=== PATIENT | male | born 1970 | race Caucasian/White ===

== ENCOUNTER 2024-02-24 09:10 | Emergency (ER) | payer BC ==
[2024-02-24] MEDS ORDERED: LORazepam 2 MG/ML VIAL ONE (09:43)
[2024-02-24] MEDS ORDERED: LACOSAMIDE 50 MG TABLET ONE (09:43)
[2024-02-24] MEDS ORDERED: NA CHLORIDE 0.9% 1,000 ML ONE (09:44)
[2024-02-24 09:49] LABS: Absolute Basophils 0.1 K/uL (0-0.5); Absolute Lymphocytes (CBC) 0.7 K/uL (0.7-4.9); Absolute Monocytes 0.7 K/uL (0.1-1.3); Absolute Neutrophil 10.9 K/uL (1.8-8.0); Basophils % 0.6 % (0-1.3); Eosinophils % 0.1 % (0-4.4); Hematocrit 47.9 % (39.6-49.0); Hemoglobin 15.7 g/dL (13.6-17.9); Lymphocytes % 5.5 % (15.3-44.8); MCH 29.4 pg (27.0-35.0); MCHC 32.9 g/dL (32.0-36.0); MCV 89.4 fL (80-100); MPV 8.8 fL (7.6-11.3); Monocytes % 5.9 % (3.3-12.3); Neutrophils % 87.9 % (41.7-73.7); Nucleated Red Blood Cells % 0.1 % (0-0); Platelets 202 thou/uL (152-406); RBC Red Blood Cell Count 5.36 M/uL (4.33-5.43); Red Cell Distribution Width 13.4 % (12.1-15.2)
[2024-02-24 10:11] LABS: Albumin 4.2 g/dL (3.4-5.0); Albumin/Globulin Ratio 1.1 (1.1-1.8); Bilirubin Total 0.4 mg/dL (0.2-1.0); Protein, Total 8.2 g/dL (6.4-8.2)
[2024-02-24] MEDS ORDERED: LEVETIRACETAM 500 MG/5 ML VIAL IV ONE (10:25)
[2024-02-24] MEDS ORDERED: NA CHLORIDE 0.9% 100 ML ONE (10:25)
--- NOTE | 2024-02-24 10:47 | RAD REPORT ---
EXAM: CT brain without contrast HISTORY: Seizure COMPARISON: None TECHNIQUE: Multiple contiguous axial images were obtained and a CT of the brain without contrast.. Sagittal and coronal reconstruction performed. Automated exposure control, adjustment of the mA and/or kV according to patient size, and/or iterative reconstruction. Unless otherwise specified, incidental f indings do not require dedicated imaging follow-up FINDINGS: An intracranial bleed is not seen Ventricles are normal caliber No extra-axial fluid collection noted Small low-density area deep white matter left cerebral nonspecific but may represent mild ischemic ch anges secondary to small vessel disease. No fluid within the visualized sinuses or mastoids noted. IMPRESSION: No acute intracranial abnormality noted. If the patient continues to have symptoms to suggest an acute intracranial abnormality then MRI of th e brain would be recommended.
--- NOTE | 2024-02-24 11:05 | ER ---
Nurse's Notes [facility] Name: Ran Varela Jr Age: 53 yrs Sex: Male : 1970 Arrival Date: 02/24/2024 Time: 09:10 Bed 6 Private MD: Diagnosis: Epileptic seizures related to external causes, not intractable, without status epilepticus-breaktrough, bite/puncture to tongue Presentation: 02/23 09:26 Chief complaint: EMS states: witnessed seizure at work, hx of seizures , takes iw lacosamide BID, not missed any doses , last seizure was in September , pt c/o of mild headache. Coronavirus screen: At this time, the client does not indicate any symptoms associated with coronavirus-19. Ebola Screen: No symptoms or risks identified at this time. Initial Sepsis Screen: Does the patient meet any 2 criteria? No. Patient's initial sepsis screen is negative. Does the patient have a suspected source of infection? No. Patient's initial sepsis screen is negative. Risk Assessment: Do you want to hurt yourself or someone else? Patient reports no desire to harm self or others. Onset of symptoms was February 24, 2024. 09:26 Method Of Arrival: EMS: [facility] iw 09:26 Acuity: STONE 3 iw Triage Assessment: 09:30 General: Appears in no apparent distress. Behavior is calm, cooperative. iw Historical: - Allergies: :28 PENICILLINS; iw - PMHx: :28 diabetes mellitus; Seizure; Anxiety; Depressive disorder; iw - Immunization history:: Adult Immunizations unknown. - Infectious Disease History:: Denies. - Family history:: not pertinent. - Social history:: Smoking status: unknown. Screenin:30 Nutritional screening: No deficits noted. Tuberculosis screening: No symptoms or risk iw factors identified. 11:58 [facility] ED Fall Risk Assessment (Adult) History of falling in the last 3 months, iw including since admission Yes- physiologic fall (2 pts) Confusion or Disorientation No (0 pts) Intoxicated or Sedated No (0 pts) Impaired Gait No (0 pts) Mobility Assist Device Used No (0 pt) Altered Elimination No (0 pt) Score/Fall Risk Level 3 or more points = High Risk Oriented to surroundings. Abuse screen: Denies threats or abuse. Denies injuries from another. Assessment: 09:30 General: Appears in no apparent distress. comfortable, Behavior is calm, cooperative. iw Pain: Complains of pain in head Pain currently is 2 out of 10 on a pain scale. Neuro: Level of Consciousness is awake, alert, obeys commands, Oriented to person, place, time, situation, Moves all extremities. Full function. Cardiovascular: Patient's skin is warm and dry. Respiratory: Respiratory effort is even, unlabored, Respiratory pattern is regular, symmetrical. GI: Abdomen is obese. Derm: Skin is normal. Musculoskeletal: Range of motion: intact in all extremities. 10:02 Reassessment: pt actively seizing, tonic clonic seizure noted, Dr Jim Grace at iw bedside, seizure lasted approx 3 minutes, 2mg Ativan given , pt post ictal at this time, pt more relaxed, unable to verbalize name a this time. 10:13 Reassessment: pt awake, oriented to person and place, drowsy. iw 11:56 Reassessment: Patient appears in no apparent distress at this time. Patient and/or iw family updated on plan of care and expected duration. Pain level reassessed. Patient is alert, oriented x 3, equal unlabored respirations, skin warm/dry/pink. Patient states feeling better. Patient states symptoms have improved. Vital Signs: 09:26 BP 144 / 89; Pulse 107; Resp 18; Temp 98.4; Pulse Ox 94% on R/A; Weight 92.99 kg; iw Height 5 ft. 6 in. ; Pain 2/10; 10:07 BP 154 / 90; Pulse 140; Pulse Ox 94% on R/A; iw 10:29 BP 127 / 76; Pulse 120; Resp 19; Pulse Ox 93% on 2 lpm NC; iw 11:56 BP 114 / 78; Pulse 95; Resp 16; Pulse Ox 94% on R/A; iw 09:26 Body Mass Index 33.09 (92.99 kg, 167.64 cm) iw 09:26 Pain Scale: Adult iw [place] Coma Score: 09:30 Eye Response: spontaneous(4). Motor Response: obeys commands(6). Verbal Response: iw oriented(5). Total: 15. 10:05 Eye Response: spontaneous(4). Motor Response: obeys commands(6). Verbal Response: aldair oriented(5). Total: 15. ED Course: 09:19 Patient arrived in ED. aldair 09:19 Terry Grcae MD is Attending Physician. aldair 09:20 Maintain EMS IV. Dressing intact. Good blood return noted. Site clean \T\ dry. Gauge \T\ iw site: 20 right hand. 09:24 Rachelle Westbrook, RN is Primary Nurse. iw 09:26 Arm band placed on. iw 09:28 Triage completed. iw 09:40 Seizure precautions initiated. iw 09:40 Client placed on continuous cardiac and pulse oximetry monitoring. NIBP monitoring iw applied. cafeteria monitor on. 09:47 EKG done, by ED staff, reviewed by Terry Grace MD. em1 10:23 CT Head Brain wo Cont In Process Unspecified. EDMS 11:05 Nakul Steward MD is Referral Physician. aldair 12:11 No provider procedures requiring assistance completed. IV discontinued, intact, iw bleeding controlled, No redness/swelling at site. Pressure dressing applied. 12:11 Provided Education on: prescriptions, return precautions, follow up with neuro on iw Tuesday . Administered Medications: 09:40 Drug: NS 0.9% IV 1000 ml IV at 1000 ml once; to be given as a bolus over 60 minutes iw Route: IV; Rate: 1000 ml; Site: right hand; 11:00 Follow up: IV Status: Completed infusion iw 09:50 Drug: Ativan IVP 1 mg IVP once Route: IVP; Site: right hand; iw 10:05 Follow up: Response: Marked relief of symptoms iw 09:50 Drug: Ativan IVP 1 mg IVP once Route: IVP; Site: left hand; iw 10:05 Follow up: Response: Marked relief of symptoms iw 10:30 Drug: Keppra IV 1000 mg IV at per protocol once Route: IV; Rate: per protocol; Site: right hand; 10:45 Follow up: IV Status: Completed infusion iw 11:41 Drug: lacosamide Extended Release 24 hour Capsule 100 mg PO once Route: PO; iw 12:00 Follow up: Response: No adverse reaction iw 11:56 Drug: Ketorolac IVP 30 mg IVP once Route: IVP; Site: right hand; iw 12:11 Follow up: Response: No adverse reaction iw 11:56 Drug: Ondansetron IVP 4 mg IVP once; over 2 minutes Route: IVP; Site: right hand; iw 12:11 Follow up: Response: No adverse reaction iw 11:56 Drug: Acetaminophen PO 1000 mg PO once Route: PO; iw 12:11 Follow up: Response: No adverse reaction iw 19:38 Not Given (Physician Discretion): ns 0.9% 1000 ml IV at 1000 ml once; to be given as a iw bolus over 60 minutes Medication: 12:10 VIS not applicable for this client. iw Outcome: 11:05 Discharge ordered by MD. quinteros 12:11 Discharged to home via wheelchair, with family, iw 12:11 Condition: good 12:11 Discharge instructions given to patient, family, Instructed on discharge instructions, follow up and referral plans. medication usage, Demonstrated understanding of instructions, follow-up care, medications, Prescriptions given X 4, 12:12 Patient left the ED. aa5 Signatures: Dispatcher [employer] EDMS Terry Grace MD MD cha Williams, Irene, RN RN iw Jordan Looney emManisha Dickson RN RN aa5 Corrections: (The following items were deleted from the chart) 09:29 09:28 PMHx: Diabetes mellitus; iw iw
--- NOTE | 2024-02-24 11:06 | EDPHYS ---
Physician Documentation [facility] Name: Ran Varela Jr Age: 53 yrs Sex: Male : 1970 Arrival Date: 02/24/2024 Time: 09:10 Bed 6 Private MD: KB Physician Terry Grace HPI: 02/23 09:48 This 53 yrs old Male presents to ER via EMS with complaints of Seizure. aldair 09:48 The patient presents after having a single isolated seizure. Character of seizure(s): aldair Loss of consciousness: the patient experienced loss of consciousness, Motor activity: generalized, Incontinence: none, Apnea: the patient did not experience apnea, Circulation: the patient did not experience evidence of pulse disturbance. Seizure onset: just prior to arrival, this morning. Context: the seizure(s) was witnessed, by co-worker(s). Seizure Hx: Last seizure: The patient's last seizure was approximately 5 month(s) ago. Associated injury: Other: tongue. Current symptoms: weak. The patient has experienced similar episodes in the past, several times. Historical: - Allergies: 09:28 PENICILLINS; iw - PMHx: 09:28 diabetes mellitus; Seizure; Anxiety; Depressive disorder; iw - Immunization history:: Adult Immunizations unknown. - Infectious Disease History:: Denies. - Family history:: not pertinent. - Social history:: Smoking status: unknown. ROS: 09:48 Constitutional: Negative for fever, chills, and weight loss, Eyes: Negative for injury, aldair pain, redness, and discharge, Neck: Negative for injury, pain, and swelling, Cardiovascular: Negative for chest pain, palpitations, and edema, Respiratory: Negative for shortness of breath, cough, wheezing, and pleuritic chest pain, Abdomen/GI: Negative for abdominal pain, nausea, vomiting, diarrhea, and constipation, Back: Negative for injury and pain, : Negative for injury, bleeding, discharge, and swelling, MS/Extremity: Negative for injury and deformity, Skin: Negative for injury, rash, and discoloration, Psych: Negative for depression, anxiety, suicide ideation, homicidal ideation, and hallucinations, Allergy/Immunology: Negative for hives, rash, and allergies, Endocrine: Negative for neck swelling, polydipsia, polyuria, polyphagia, and marked weight changes, Hematologic/Lymphatic: Negative for swollen nodes, abnormal bleeding, and unusual bruising, 09:48 ENT: Positive for bite to left tongue, Exam: 09:48 Constitutional: This is a well developed, well nourished patient who is awake, alert, aldair and in no acute distress. Head/Face: Normocephalic, atraumatic. Eyes: Pupils equal round and reactive to light, extra-ocular motions intact. Lids and lashes normal. Conjunctiva and sclera are non-icteric and not injected. Cornea within normal limits. Periorbital areas with no swelling, redness, or edema. Neck: Trachea midline, no thyromegaly or masses palpated, and no cervical lymphadenopathy. Supple, full range of motion without nuchal rigidity, or vertebral point tenderness. No Meningismus. Chest/axilla: Normal chest wall appearance and motion. Nontender with no deformity. No lesions are appreciated. Cardiovascular: Regular rate and rhythm with a normal S1 and S2. No gallops, murmurs, or rubs. Normal PMI, no JVD. No pulse deficits. Respiratory: Lungs have equal breath sounds bilaterally, clear to auscultation and percussion. No rales, rhonchi or wheezes noted. No increased work of breathing, no retractions or nasal flaring. Abdomen/GI: Soft, non-tender, with normal bowel sounds. No distension or tympany. No guarding or rebound. No evidence of tenderness throughout. Back: No spinal tenderness. No costovertebral tenderness. Full range of motion. Male : Normal genitalia with no discharge or lesions. Skin: Warm, dry with normal turgor. Normal color with no rashes, no lesions, and no evidence of cellulitis. MS/ Extremity: Pulses equal, no cyanosis. Neurovascular intact. Full, normal range of motion., bilateral aka Neuro: Awake and alert, GCS 15, oriented to person, place, time, and situation. Cranial nerves II-XII grossly intact. Motor strength 5/5 in all extremities. Sensory grossly intact. Cerebellar exam normal. Normal gait. Psych: Awake, alert, with orientation to person, place and time. Behavior, mood, and affect are within normal limits. 09:48 ENT: Dental exam: bite , puncture left tongue, :48 ECG was reviewed by the Attending Physician. Vital Signs: 09:26 BP 144 / 89; Pulse 107; Resp 18; Temp 98.4; Pulse Ox 94% on R/A; Weight 92.99 kg; iw Height 5 ft. 6 in. ; Pain 2/10; 10:07 BP 154 / 90; Pulse 140; Pulse Ox 94% on R/A; iw 10:29 BP 127 / 76; Pulse 120; Resp 19; Pulse Ox 93% on 2 lpm NC; iw 11:56 BP 114 / 78; Pulse 95; Resp 16; Pulse Ox 94% on R/A; iw 09:26 Body Mass Index 33.09 (92.99 kg, 167.64 cm) iw 09:26 Pain Scale: Adult iw [place] Coma Score: 09:30 Eye Response: spontaneous(4). Motor Response: obeys commands(6). Verbal Response: iw oriented(5). Total: 15. 10:05 Eye Response: spontaneous(4). Motor Response: obeys commands(6). Verbal Response: aldair oriented(5). Total: 15. MDM: 09:19 Medical Screening Exam initiated aldair 10:08 ED course: had recurrent seizure, 2 min , 4-5 min postictal period, dw dr luis felipe quinteros again , recommends keppra 1 gm load, 500 mg bid along with lacosamide. 10:10 Differential diagnosis: cerebral vascular accident, drug overdose, cardiac arrhythmia, aldair seizure, TIA. Data reviewed: vital signs, nurses notes, EMS record, lab test result(s), EKG, radiologic studies, CT scan. Consideration of Admission/Observation Patient was admitted/placed on observation. Escalation of care including admission/observation considered. I considered the following discharge prescriptions or medication management in the emergency department Medications were administered in the Emergency Department. See MAR. Independent interpretation of the following test(s) in the Emergency Department EKG: See my EKG interpretation above. Test considered but Not performed: MRI: no mri brain. Historians other than the Patient: EMS: ems well informed, family well informed. Care significantly affected by the following chronic conditions: Diabetes, seizure, depression. Counseling: I had a detailed discussion with the patient and/or guardian regarding the historical points, exam findings, and any diagnostic results supporting the discharge/admit diagnosis, lab results, radiology results, the need for outpatient follow up, for definitive care, an crisis intervention specialist, a neurologist. 02/23 09:21 Order name: CBC with Diff; Complete Time: 11:43 [facility] 02/23 09:21 Order name: Comprehensive Metabolic Panel; Complete Time: 11:05 [facility] 02/23 11:18 Order name: CBC Smear Scan; Complete Time: 11:43 EDMS 02/23 10:07 Order name: CT Head Brain wo Cont; Complete Time: 11:05 [facility] 02/23 09:21 Order name: EKG; Complete Time: 09:21 [facility] 02/23 09:21 Order name: EKG - Nurse/Tech; Complete Time: 09:47 [facility] 02/23 09:21 Order name: Seizure Precautions; Complete Time: 09:40 [facility] EC:48 Rate is 100 beats/min. Rhythm is regular. QRS [place] is Normal. [place] interval is normal. [facility] QRS interval is normal. QT interval is normal. No Q waves. T waves are Normal. No ST changes noted. Clinical impression: Normal ECG and No evidence of ischemia. Administered Medications: 09:40 Drug: NS 0.9% IV 1000 ml IV at 1000 ml once; to be given as a bolus over 60 minutes iw Route: IV; Rate: 1000 ml; Site: right hand; 11:00 Follow up: IV Status: Completed infusion iw 09:50 Drug: Ativan IVP 1 mg IVP once Route: IVP; Site: right hand; iw 10:05 Follow up: Response: Marked relief of symptoms iw 09:50 Drug: Ativan IVP 1 mg IVP once Route: IVP; Site: left hand; iw 10:05 Follow up: Response: Marked relief of symptoms iw 10:30 Drug: Keppra IV 1000 mg IV at per protocol once Route: IV; Rate: per protocol; Site: right hand; 10:45 Follow up: IV Status: Completed infusion iw 11:41 Drug: lacosamide Extended Release 24 hour Capsule 100 mg PO once Route: PO; iw 12:00 Follow up: Response: No adverse reaction iw 11:56 Drug: Ketorolac IVP 30 mg IVP once Route: IVP; Site: right hand; iw 12:11 Follow up: Response: No adverse reaction iw 11:56 Drug: Ondansetron IVP 4 mg IVP once; over 2 minutes Route: IVP; Site: right hand; iw 12:11 Follow up: Response: No adverse reaction iw 11:56 Drug: Acetaminophen PO 1000 mg PO once Route: PO; iw 12:11 Follow up: Response: No adverse reaction iw 19:38 Not Given (Physician Discretion): ns 0.9% 1000 ml IV at 1000 ml once; to be given as a iw bolus over 60 minutes Disposition Summary: 02/24/24 11:05 Discharge Ordered Notes: Location: Home aldair Problem: new aldair Symptoms: have improved aldair Condition: Stable aldair Diagnosis - Epileptic seizures related to external causes, not intractable, without status aldair epilepticus - breaktrough, bite/puncture to tongue Followup: aldair - With: Private Physician - When: 2 - 3 days - Reason: Recheck today's complaints, Continuance of care, Re-evaluation by your physician Followup: aldair - With: Nakul Steward MD - When: 2 - 3 days - Reason: Recheck today's complaints, Re-evaluation by your physician Discharge Instructions: - Discharge Summary Sheet aldair - Epilepsy aldair - Seizure, Adult aldair - Seizure, Adult, [id number] aldair - Epilepsy, [id number] aldair Forms: - Medication Reconciliation Form aldair - Antibiotic Education aldair - Prescription Opioid Use aldair - Patient Portal Instructions [facility] - Leadership Thank You Letter [facility] Prescriptions: - lacosamide 100 mg Oral tablet - take 1 tablet ORAL route every morning; 15 tablet; Refills: 0, Product aldair Selection Permitted - lacosamide 200 mg Oral tablet - take 1 tablet ORAL route At bedtime; 30 tablet; Refills: 0, Product Selection aldair Permitted - diazepam 12.5-15-17.5-20 mg Rectal Kit - apply 10 milligram RECTAL route once for intractable seizure; 2 unit; Refills: aldair 0, Product Selection Permitted - Keppra 500 mg Oral Tablet - take 1 tablet ORAL route every 12 hours; 20 tablet; Refills: 0, Product aldair Selection Permitted Critical care time excluding procedures: 10:12 Critical care time: Bedside Care: 25 minutes, Consultation: 15 minutes, Family aldair Intervention: 10 minutes. Total time: 50 minutes Signatures: Dispatcher [employer] EDTerry Miller MD MD cha Williams, Irene, RN RN iw Corrections: (The following items were deleted from the chart) 09:29 09:28 PMHx: Diabetes mellitus; iw iw 10:07 10:07 Head Brain Wo [id number] ordered. EDMS EDMS
[2024-02-24 11:18] LABS: Blood Morphology Comment NOT SEEN (NOT SEEN); Platelet Estimate ADEQ; White Blood Cell Scan OK (OK)
[2024-02-24] MEDS ORDERED: ACETAMINOPHEN 500 MG TAB ONE (11:34)
[2024-02-24] MEDS ORDERED: ONDANSETRON 4 MG/2 ML VIAL ONE (11:34)
[2024-02-24] MEDS ORDERED: KETOROLAC 30 MG/ML INJ ONE (11:35)
[2024-02-24 12:16] VITALS: TEMP 98.4
[2024-02-24 12:21] VITALS: BP 114/78; O2SAT 94
--- NOTE | 2024-02-28 12:10 | EKG ---
Test Date: 2024-02-24 Test Time: 09:42:19 Back Shoe Cutter: [place]O MEASUREMENT RESULTS: Intervals: Rate: 100 WV: 154 QRSD: 84 QT: 336 QTc: 433 [place]: P: 72 WV: 154 QRS: 77 T: 54 INTERPRETIVE STATEMENTS: Normal sinus rhythm Normal ECG No previous ECG available for comparison Electronically Signed On 02-28-24 12:05:55 [employer] by Kameron Canchola
== END 2024-02-24 12:12 | disposition home or self-care (01) ==
LOC: ER 09:10
DX: G40.509 Epileptic seizures related to external causes, not intractable, without status epilepticus (principal); S01.532A Puncture wound without foreign body of oral cavity, initial encounter; E11.9 Type 2 diabetes mellitus without complications
CPT/HCPCS: 85025; 36415; 80053; 70450; 99285; J1953; J2405; J7030; 93005